=== PATIENT | male | born 1975 | race African-American/Black ===

== ENCOUNTER 2018-11-01 05:35 | Inpatient (IN) ==
[2018-11-01] MEDS ORDERED: DUONEB (A & A) INH ONE ×3 (05:42→06:32)
[2018-11-01] MEDS ORDERED: SOLU-MEDROL IM ONE (05:44)
[2018-11-01 06:33] LABS: BASO# 0.03 X1000 (0.0-0.2); BASO% 0.4 % (0.0-0.8); EOS# 1.69 X1000 (0.0-0.7); EOS% 23.6 % (0.0-10.0); HEMATOCRIT 49.3 % (42.0-52.0); HEMOGLOBIN 16.7 g/dL (14.0-18.0); IMM GRAN# 0.01 X1000 (0.0-0.04); IMM GRAN% 0.1 % (0.0-0.5); LYMPH# 2.92 X1000 (1.2-3.4); LYMPH% 40.8 % (20.5-51.1); MCH 31.7 PG (27-31); MCHC 33.9 g/dL (33-37); MCV 93.5 FL (81-99); MONO# 0.35 X1000 (0.11-0.59); MONO% 4.9 % (1.7-9.3); MPV 9.3 FL (7.4-10.4); NEUT# 2.15 X1000 (1.4-6.5); NEUT% 30.2 % (42.2-75.2); PLT 225 X1000 (130-400); RBC 5.27 XMIL (4.7-6.1); RDW 14.4 % (11.5-14.5); WBC 7.15 X1000 (4.8-10.8)
--- NOTE | 2018-11-01 06:41 | PROVIDER DOCUMENTATION ---
HPI-Respiratory General - General Chief Complaint: Shortness of Breath Stated Complaint: SOB Time Seen by Provider: 11/01/18 05:36 Source: patient Unable to obtain history due to:: urgency Allergies/Adverse Reactions: Patient Allergies Allergy/AdvReac Type Severity Reaction Status Date / Time doxycycline Allergy Mild ITCHING Verified 11/01/18 05:40 propoxyphene napsylate * Allergy Mild ITCHING Verified 11/01/18 05:40 [From Daramnacet-N 100] clindamycin Allergy ITCHING Verified 11/01/18 05:40 Home Medications: Home Medication List Medication Instructions Recorded Confirmed Last Taken Type Montelukast [Singulair] 10 mg PO DAILY #30 tablet 08/25/14 03/16/18 1 Day Ago Rx ~06/26/17 Fluticasone 50 Mcg Nasal [place] 1 squirt REGAN BID 03/28/16 03/16/18 1 Day Ago History [Flonase] ~06/26/17 Albuterol Sulfate [Proair Hfa] 8.5 gm INH ORDERED PRN 04/24/17 03/16/18 1 Day Ago History ~06/26/17 Mometasone/Formoterol [Dulera 200 2 puff INH BID 04/24/17 03/16/18 1 Day Ago History Mcg/5 Mcg Inhaler] ~06/26/17 Albuterol [Albuterol Neb] 2.5 mg INH Q4H PRN PRN #180 neb 08/26/17 03/16/18 Unknown Rx Ipratropium [place] Neb [Atrovent 1 appful INH Q2-4H PRN PRN 10/31/17 03/16/18 Unknown History Neb] Dicyclomine [Bentyl] 20 mg PO BID #20 cap 03/11/18 03/16/18 Unknown Rx Metronidazole 500 mg PO DAILY 03/16/18 03/16/18 Unknown History Omeprazole 40 mg PO DAILY 03/16/18 03/16/18 Unknown History Albuterol Sulfate [Albuterol 8.5 gm IH Q4H PRN PRN #1 hfa.aer.ad 04/20/18 Unknown Rx Sulfate Hfa] Azithromycin [Zithromax Z-Jaret] 250 mg PO DIRECTED #1 pkg 04/20/18 Unknown Rx Benzonatate [Tessalon [place]] 100 mg PO TID PRN PRN #20 cap 04/20/18 Unknown Rx Methylprednisolone [Medrol Dosepak] 4 mg PO DIRECTED #1 pkg 04/20/18 Unknown Rx Prednisone 20 mg PO BID #10 tablet 05/13/18 Unknown Rx Prednisone 20 mg PO BID #30 tablet 06/02/18 Unknown Rx Prednisone 10 mg PO BID PRN PRN #20 tab 09/01/18 Unknown Rx - History of Present Illness-Resp Nature of Presenting Problem: 43 y/o BM c/o wheezing and SOB that started tonight. He relates that this is similar to his previous asthma exacerbations. Quality of Pain: reports: none Severity in ED: reports: moderate Onset/Duration: reports: last night Timing: reports: still present Context: reports: out of meds Cough Quality/Degree: reports: mild Current Respiratory Medication Therapy: Initiated see nurses note, Initiated albuterol/atrovent inhale, Initiated prednisone, Initiated singulair Modifying Factors: improves with: exertion, albuterol inhaler, coughing Associated Symptoms: reports: short of breath, wheezing Similar Symptoms Previously?: Yes Recently seen or treated by another doctor?: No Review of Systems - Adult - REVIEW OF SYSTEMS - ADULT Constitutional: reports: no symptoms reported, see HPI Eyes: reports: no symptoms reported, see HPI Ears, Nose, Mouth & Throat: reports: no symptoms reported, see HPI Cardiovascular: reports: no symptoms reported, see HPI Respiratory: reports: see HPI, wheezing Gastrointestinal: reports: no symptoms reported, see HPI Genitourinary: reports: no symptoms reported, see HPI Musculoskeletal: reports: no symptoms reported, see HPI Integumentary: reports: no symptoms reported, see HPI Neurological: reports: no symptoms reported, see HPI Psychiatric: reports: no symptoms reported, see HPI Endocrine: reports: no symptoms reported, see HPI Hematologic/Lymphatic: reports: no symptoms reported, see HPI Allergic/Immunologic: reports: no symptoms reported, see HPI All Other Systems: Reviewed and Negative Past History - Adult - PAST MEDICAL HISTORY-ADULT Review of Records: reports: Nursing Assessment Review, Medications Reviewed, Social history reviewed & non-contributory. Major Childhood Illnesses: reports: denies history Cardiovascular: reports: denies history Respiratory: reports: asthma, COPD Gastrointestinal: reports: denies history Obstetrical/Gynecological: reports: denies history Genitourinary: reports: denies history Musculoskeletal: reports: denies history Neurological: reports: denies history Psychiatric: reports: denies history Endocrine/Immune: reports: denies history Other Conditions: reports: denies history - PRIOR SURGERIES/PROCEDURES Surgical/Procedure History: reports: reviewed, not pertinent, back/neck (disc repair) - IMMUNIZATION STATUS Childhood Immunizations: See Nurse Assessment Flu Vaccine: See Nurse Assessment - FAMILY HISTORY Family History: reviewed, not pertinent Physical Exam-General - PHYSICAL EXAM-ADULT Initial Vital Signs Reviewed: Yes - CONSTITUTIONAL General Appearance: appears well, alert, no apparent distress - EYES Eyes: PERRL/EOMI - HEAD, EARS, NOSE, MOUTH & THROAT HENMT: normocephalic/atraumatic, moist mucous membranes - NECK Neck: non-tender, full range of motion, supple, normal inspection - RESPIRATORY Respiratory: chest non-tender, no pleuratic chest pain, respiratory distress, decreased breath sounds, wheezing - CARDIOVASCULAR Cardiovascular: normal peripheral pulses, regular rate, rhythm, no edema, no gallop, no JVD, no murmur - GASTROINTESTINAL (ABDOMEN) Abdominal Exam: normal bowel sounds, non tender, soft, no organomegaly, no pulsatile mass - LYMPHATIC Lymphatic: no adenopathy - MUSCULOSKELETAL Back Exam: normal inspection, no CVA tenderness, no vertebral tenderness Extremity: normal range of motion, non-tender, normal gait, normal inspection, no pedal edema, no calf tenderness, normal capillary refill - SKIN Integumentary: normal color, normal turgor - NEUROLOGIC Neurologic: health and wellness director II-XII nml as tested, grossly normal, no motor/sensory deficits - PSYCHIATRIC Psych/Mental Status: normal mood/affect, normal thought content, normal thought process, oriented x 3 Progress - PLAN OF CARE/RESULTS Progress/Plan/Lab Results: Vital Signs - 8 hr 11/01/18 05:38 11/01/18 05:44 Temperature 97.5 F L Pulse Rate 87 90 Respiratory Rate 26 H 22 Blood Pressure 127/85 O2 Sat by Pulse Oximetry 96 93 L Laboratory Results - last 24 hr 11/01/18 06:13 WBC 7.15 RBC 5.27 Hgb 16.7 Hct 49.3 MCV 93.5 MCH 31.7 H MCHC 33.9 RDW Std Deviation 14.4 Plt Count 225 MPV 9.3 Immature Gran % (Auto) 0.1 Neut % (Auto) 30.2 L Lymph % (Auto) 40.8 [place] % (Auto) 4.9 Eos % (Auto) 23.6 H Baso % (Auto) 0.4 Immature Gran # (Auto) 0.01 Neut # (Auto) 2.15 Lymph # (Auto) 2.92 [place] # (Auto) 0.35 Eos # (Auto) 1.69 H Baso # (Auto) 0.03 Orders Category Date Time Status cxr [CHEST-1 VIEW] [RAD] Stat Exams 11/01/18 05:44 Taken CBC WITH ELECTRONIC DIFF [HEME] Stat Lab 11/01/18 06:13 Completed Albuterol 2.5MG/Ipratrop 0.5MG [Duoneb (A & A)] Med 11/01/18 05:42 Discont inued 3 ml INH NOW ONE Albuterol 2.5MG/Ipratrop 0.5MG [Duoneb (A & A)] Med 11/01/18 06:23 D iscontinued 3 ml INH NOW ONE Albuterol 2.5MG/Ipratrop 0.5MG [Duoneb (A & A)] Med 11/01/18 06:32 Discontinued 3 ml INH NOW ONE Methylprednisolone Sod Succ [Solu-Medrol] Med 11/01/18 05:44 Discontinued 125 mg IM NOW ONE Aerosol Treatments Routine Ot 11/01/18 05:42 Completed Aerosol Treatments Routine [facility] 11/01/18 06:23 Completed Aerosol Treatments Stat [facility] 11/01/18 05:42 Completed Aerosol Treatments Stat [facility] 11/01/18 05:42 Completed Aerosol Treatments Stat [facility] 11/01/18 06:23 Completed Asthma/COPD (Adult) Stat [facility] 11/01/18 05:42 Ordered Result Diagrams: 11/01/18 06:13 - REASSESSMENT Reassessment #1 Time Reassessed: 08:00 Status: unchanged Reassessment Comment: Still wheezing and short of breath - CONSULTS/PCP/HOSPITALIST Notification #1 *Consult/PCP/Hospitalist*: Dr. Mix Time Discussed: 08:14 Consult Disposition: Admit - CHANGE OF SHIFT REPORT (ED Provider) 1 Report Given and Care Transferred to:: Dr Pelayo Time of Transfer: 07:00 Items Pending: XRAY Results, Other (symptom improvement) Departure - Departure Date of Disposition Decision: 11/01/18 Time of Disposition Decision: 08:15 DIAGNOSIS: Asthma exacerbation Qualifiers: Asthma severity: moderate Asthma persistence: persistent Qualified Code(s): J45.41 - Moderate persistent asthma with (acute) exacerbation Disposition: ADMITTED INPATIENT 09 Certified Medical Emergency: Emergent Condition: Serious Referrals and Follow-Ups: None,PCP [Primary Care Provider] - - Critical Care Note This patient required my direct & personal management of CC.: No Attestation - Physician/ ROULA Attestation The physician spent face to face time with patient:: Yes Advanced Practice Provider documentation review:: Supervising physician onsite and consulted in the evaluation and care of this patient. The physician did have a face to face encounter with the patient.
--- NOTE | 2018-11-01 07:02 | Diag Imaging Result Doc PS360 ---
EXAM: CHEST-1 VIEW HISTORY: sob TECHNIQUE: Chest single view COMPARISON: 09/01/2018 FINDINGS: The lungs are well expanded. The heart is not enlarged. The vessels are not distended. There are no infiltrates. No effusion identified. There has been surgery to the lower neck. IMPRESSION: Negative exam. Follow-up PA and lateral may be beneficial. Electronically signed by Pro Wyman 11/01/2018 7:00 AM
[2018-11-01 08:20] LABS: CALCIUM 9.5 mg/dL (8.8-10.2); CREATININE 1.4 mg/dL (0.7-1.2); POTASSIUM 4.3 mmol/L (3.5-5.1)
[2018-11-01 08:26] LABS: BE 1.6 mmoll (-3.0-3.0); BLOOD TYPE ARTERIAL; HCO3-(ACT) 25.9 mmoll (20.0-26.0); METHB 0.8 % (0.0-1.5); O2(CT) 19.9 mL/dL (15.0-23.0); PCO2(98.6) 39 mmHg (35-45); PO2(98.6) 57 mmHg (60-100); SAMPLE BLOOD; THB 15.9 g/dL (11.5-17.4); pH(98.6) 7.43 (7.35-7.45)
[2018-11-01 08:33] LABS: ALLEN TEST YES; MODALITY ROOM AIR; O2HB 89.1 % (95.0-99.0)
[2018-11-01] MEDS ORDERED: VENTOLIN HFA INH PRN (10:38)
[2018-11-01] MEDS: DUONEB (A & A) INH SCH ×4 (10:45→22:59)
[2018-11-01] MEDS: SINGULAIR PO SCH ×2 (11:15→11:16)
[2018-11-01] MEDS: FLONASE NAS SCH ×2 (11:16→20:30)
[2018-11-01] MEDS ORDERED: DUONEB (A & A) INH SCH (11:30)
--- NOTE | 2018-11-01 13:57 | HISTORY AND PHYSICAL ---
PRIMARY CARE PHYSICIAN: Dr. Gina Tapia CHIEF COMPLAINT: Shortness of breath and wheezing that started last night and felt similar to previous asthma exacerbations. States that he does use O2 via nasal cannula as needed and that did not help. HISTORY OF PRESENT ILLNESS: This is a 43-year-old male who presents to [facility] ER with complaints of wheezing and shortness of breath that began last night. He has a history of asthma, uses home O2 via nasal cannula at 2 L as needed. He did attempt to use that along with his other inhalers without relief of symptoms. When he arrived, he had an O2 saturation of 96% on room air, respirations were 26. Laboratory data was fairly unremarkable. He did have a creatinine of 1.4, but that is around his baseline, as he has chronic kidney disease stage 3A. His chest x-ray showed a negative exam, but he will be admitted for an acute asthma exacerbation for further evaluation and treatment. PAST MEDICAL HISTORY: COPD on home O2 at 2 L via nasal cannula p.r.n., asthma, obstructive sleep apnea with CPAP use at night, chronic kidney disease stage 3A, and seasonal allergies. PAST SURGICAL HISTORY: Back surgery. FAMILY HISTORY: Father with diabetes, asthma and prostate cancer. SOCIAL HISTORY: Currently lives with family. He is a former smoker of a pack a day for over 20 years, but he quit smoking cigarettes in 2010 when he was diagnosed with COPD. He then switched over to smoking Black and Mild and was smoking 2 a day and quit in 2017. Now he states he smokes 1 Black and Mild about every other day. Denies any alcohol or illicit drug use. ALLERGIES: Doxycycline, propoxyphene and clindamycin. HOME MEDICATIONS: He uses an albuterol nebulizer q.4 to hours p.r.n. and will be held, albuterol inhaler 4 times daily and will be held, ProAir inhaler q.4 to 6 hours p.r.n., Flonase 1 spray nasally daily, Singulair 10 mg p.o. daily. DIAGNOSTIC DATA: White blood cell count of 7.15, hemoglobin 16.7, hematocrit 49.3, platelets 225. ABG with a pH of 7.43, pCO2 of 39, pO2 of 57, bicarb 25.9, oxyhemoglobin 89.1, carboxyhemoglobin 3.40, and this was on room air. Sodium is 140, potassium 4.3, chloride 102, CO2 is 26, BUN of 11, creatinine 1.4, glucose 93. Chest x-ray showed a negative exam. REVIEW OF SYSTEMS: He denied any fever, chills, blurred vision, dizziness or chest pain. He has had a nonproductive cough, shortness of breath, wheezing. Denied any abdominal pain, constipation, diarrhea, burning or hurting with urination. PHYSICAL EXAMINATION: VITAL SIGNS: On arrival, he had a temperature of 97.5, pulse 87, respirations 26, blood pressure 127/85, saturating 96% on room air. GENERAL: This is a 43-year-old male who was lying in the bed, answers all questions appropriately. HEENT: Normocephalic and atraumatic. Normal ENT inspection. Oropharynx and nares are clear. Pupils are equal and reactive to light and accommodation. Extraocular movements were intact. NECK: Normal inspection. Normal range of motion. LUNGS: Wheezing throughout entire posterior lung nesbitt. Equal lung expansion and chest wall movement noted. No O2 in use at this time. HEART: Regular rate and rhythm. No murmurs, rubs or gallops. ABDOMEN: Soft, nontender and nondistended. Bowel sounds are present x4 quadrants. MUSCULOSKELETAL: He has 5/5 strength x4 extremities. NEUROLOGICAL: Cranial nerves II through XII appear grossly intact. ASSESSMENT: 1. Acute asthma exacerbation. 2. History of chronic obstructive pulmonary disease. 3. History of obstructive sleep apnea. 4. Chronic kidney disease. 5. Tobacco abuse. PLAN: He was admitted to the Medical Unit. We will place him on DuoNebs q.4 hours routinely and q.[address] place him on Solu Medrol 80 mg IV q.8 hours and wean as he improves. I placed him on a regular diet. Peak flow b.i.d. Continue home medications as previously identified. We will recheck a CBC and BMP in the a.m. Further orders after being seen by attending. Dictated by CLEMENT Varghese for Drake Mix MD cc: CLEMENT Varghese MD Bernice Swain, MD
[2018-11-01] MEDS ORDERED: SOLU-MEDROL IV SCH (14:00)
[2018-11-01] MEDS ORDERED: LACTULOSE PO ONE (16:30)
[2018-11-01] MEDS ORDERED: LACTULOSE PO PRN (16:30)
[2018-11-01] MEDS ORDERED: PRILOSEC PO ONE (16:30)
[2018-11-01] MEDS ORDERED: TYLENOL PO PRN (16:30)
[2018-11-01] MEDS: ROCEPHIN 1 GM in NS 50 ML IV SCH (17:51)
--- NOTE | 2018-11-01 20:54 | HISTORY AND PHYSICAL ---
ADDENDUM: SUBJECTIVE: The patient gets significant asthma. He is on oxygen at night as needed and at night scheduled with his CPAP. He is stable. He came in with saturations not low, but a lot of bronchospasm and it was not breaking. He had recently been on a course of Augmentin and Medrol per his customer service supervisor. I think he sees someone in the [place] area. In any case, I am listening to him this afternoon and he sounds much better. Wheezing has essentially resolved. I think he is doing probably good enough to go home soon, but I am going to give him 24 hours just to make sure that he does not have any further decompensation. I am going to back down the steroids a little bit. He is empirically on antibiotics and breathing treatments, and we will follow. DISPOSITION: I anticipate discharge tomorrow. He is on Singulair. We will add Prilosec and probably a dose of Rocephin, and follow closely. This was a liim-fc-hour encounter note with CLEMENT Varghese. cc: Drake Mix MD
[2018-11-02] MEDS: SOLU-MEDROL IV SCH ×2 (03:28→17:22)
[2018-11-02] MEDS: DUONEB (A & A) INH SCH ×4 (03:42→16:49)
[2018-11-02] MEDS ORDERED: PRILOSEC PO SCH (07:00)
--- NOTE | 2018-11-02 07:06 | Diag Imaging Result Doc PS360 ---
EXAM: CHEST-2 VIEWS HISTORY: hypoxia TECHNIQUE: Chest two views COMPARISON: 11/01/2018 FINDINGS: The lungs are hyperexpanded. The heart is not enlarged. The vessels are small. There are no infiltrates. No pleural effusions. There has been surgery to the lower neck. IMPRESSION: Emphysema Electronically signed by Pro Wyman 11/02/2018 7:04 AM
[2018-11-02 07:56] VITALS: BP 122/82
[2018-11-02 08:34] LABS: BASO# 0.01 X1000 (0.0-0.2); BASO% 0.1 % (0.0-0.8); EOS# 0.01 X1000 (0.0-0.7); EOS% 0.1 % (0.0-10.0); HEMATOCRIT 46.2 % (42.0-52.0); HEMOGLOBIN 15.8 g/dL (14.0-18.0); IMM GRAN# 0.03 X1000 (0.0-0.04); IMM GRAN% 0.3 % (0.0-0.5); LYMPH# 0.98 X1000 (1.2-3.4); LYMPH% 9.3 % (20.5-51.1); MCH 31.9 PG (27-31); MCHC 34.2 g/dL (33-37); MCV 93.3 FL (81-99); MONO# 0.25 X1000 (0.11-0.59); MONO% 2.4 % (1.7-9.3); MPV 9.4 FL (7.4-10.4); NEUT# 9.28 X1000 (1.4-6.5); NEUT% 87.8 % (42.2-75.2); PLT 205 X1000 (130-400); RBC 4.95 XMIL (4.7-6.1); RDW 14.3 % (11.5-14.5); WBC 10.56 X1000 (4.8-10.8)
[2018-11-02 08:47] LABS: AGAP 14; BUN 15 mg/dL (8-22); CALCIUM 9.6 mg/dL (8.8-10.2); CHLORIDE 103 mmol/L (98-107); COSMO 280; CREATININE 1.2 mg/dL (0.7-1.2); ESTIMATED GFR > 60; GLUCOSE 98 mg/dL (70-104); POTASSIUM 4.4 mmol/L (3.5-5.1); SODIUM 140 mmol/L (136-145); TCO2 24 mmol/L (25-35)
[2018-11-02] MEDS: FLONASE NAS SCH (09:07)
[2018-11-02] MEDS: SINGULAIR PO SCH (09:07)
[2018-11-02 09:09] LABS: BANDS 1 % (0-1); LYMPHS 11 % (21-51); MONO 1 % (1-9); POLYCHROM OCCASIONAL; SEGS 87 % (42-75)
[2018-11-02 09:10] LABS: OVALOCYTES OCCASIONAL; POIKILOCYTOSIS OCCASIONAL; STOMATOCYTES OCCASIONAL; VACUOLES OCCASIONAL
[2018-11-02] MEDS: ROCEPHIN 1 GM in NS 50 ML IV SCH (17:22)
--- NOTE | 2018-11-03 14:02 | DISCHARGE SUMMARY ---
ADMISSION DATE: 11/01/2018 DISCHARGE DATE: 11/02/2018 DISCHARGE DIAGNOSIS: Chronic obstructive pulmonary disease exacerbation, reported possible asthma exacerbation. HOSPITAL COURSE: No pneumonia. In any case, he came in with shortness of breath, cough, wheezing. His workup in the ER was really unremarkable except for just clinical wheezing, shortness of breath. He was placed on Solu-Medrol, I think antibiotics empirically. By the time I saw him, day one, , in the early afternoon, he had much improved. His chest x-ray is clear. No pneumonia but he does report a productive cough. No white count. His lungs were clear and he was felt stable for discharge on the . His peak flows were very good. The one I got with him was around 360. His documented peak flow this morning was 395 and then 540. DISCHARGE MEDICATIONS: Albuterol nebulizers q.4, Atrovent q.4, fluticasone, ProAir rescue, Omnicef 300 p.o. b.i.d. for 7 days, prednisone taper, Prilosec 40 daily, with asthma, Singulair 10 daily, and I have also gone ahead and put him on Advair. I think we will probably just do Flovent or Pulmicort. It just seems like he should qualify for long-standing inhaled steroid, maybe a long-standing inhaled beta agonist but I will start him with Flovent. DISCHARGE INSTRUCTIONS: He can follow up with his PCP and Dr. Barnes. This is a 32 minute discharge. cc: MD Ila Glasgow MD MTDD
== END 2018-11-02 17:15 | disposition home or self-care (01) | DRG 202 ==
LOC: P.ED 05:35 → P.MEDSURG 05:36
PROVIDERS: ATTEND Internal Medicine
CPT/HCPCS: 71010; 71020; 71045; 71046; 80048; 82785; 82805; 85025; 94640; 94761; 96374; 99285; A9270; J0696; J2930

== ENCOUNTER 2019-02-10 20:31 | Observation (INO) ==
[2019-02-10] MEDS ORDERED: DUONEB (A & A) INH ONE (21:16)
[2019-02-10] MEDS ORDERED: SOLU-MEDROL IV ONE (21:17)
[2019-02-10] MEDS ORDERED: BENADRYL IV ONE (21:17)
[2019-02-10] MEDS ORDERED: ALBUTEROL NEB INH ONE (22:00)
[2019-02-10 22:01] LABS: BASO# 0.01 X1000 (0.0-0.2); BASO% 0.2 % (0.0-0.8); EOS# 0.83 X1000 (0.0-0.7); EOS% 12.7 % (0.0-10.0); HEMATOCRIT 42.1 % (42.0-52.0); HEMOGLOBIN 13.7 g/dL (14.0-18.0); IMM GRAN# 0.01 X1000 (0.0-0.04); IMM GRAN% 0.2 % (0.0-0.5); LYMPH# 2.63 X1000 (1.2-3.4); LYMPH% 40.4 % (20.5-51.1); MCH 31.1 PG (27-31); MCHC 32.5 g/dL (33-37); MCV 95.5 FL (81-99); MONO# 0.39 X1000 (0.11-0.59); NEUT# 2.64 X1000 (1.4-6.5); NEUT% 40.5 % (42.2-75.2); PLT 263 X1000 (130-400); RBC 4.41 XMIL (4.7-6.1); WBC 6.51 X1000 (4.8-10.8)
[2019-02-10 22:13] LABS: BE -0.6 mmoll (-3.0-3.0); BLOOD TYPE ARTERIAL; HCO3-(ACT) 24.3 mmoll (20.0-26.0); METHB 1.1 % (0.0-1.5); O2(CT) 19.5 mL/dL (15.0-23.0); O2HB 93.4 % (95.0-99.0); PCO2(98.6) 43 mmHg (35-45); PO2(98.6) 78 mmHg (60-100); SAMPLE BLOOD; SAO2 97.1 % (95.0-100.0); THB 14.8 g/dL (11.5-17.4); pH(98.6) 7.37 (7.35-7.45)
[2019-02-10 22:15] LABS: ALLEN TEST NO; MODALITY CANNULA
[2019-02-10 22:19] LABS: CALCIUM 8.7 mg/dL (8.8-10.2); CREATININE 1.3 mg/dL (0.7-1.2)
--- NOTE | 2019-02-10 22:58 | PROVIDER DOCUMENTATION ---
This chart was entered by Yu Saucedo Scribe, acting as scribe for Memo Martin MD. HPI-Respiratory General - General Chief Complaint: Shortness of Breath Stated Complaint: SOB/RASH Time Seen by Provider: 02/10/19 20:59 Source: patient Allergies/Adverse Reactions: Patient Allergies Allergy/AdvReac Type Severity Reaction Status Date / Time doxycycline Allergy Mild ITCHING Verified 11/01/18 05:40 propoxyphene napsylate * Allergy Mild ITCHING Verified 11/01/18 05:40 [From Darvocet-N 100] clindamycin Allergy ITCHING Verified 11/01/18 05:40 Home Medications: Home Medication List Medication Instructions Recorded Confirmed Last Taken Type Montelukast [Singulair] 10 mg PO DAILY #30 tablet 08/25/14 11/01/18 1 Day Ago Rx ~06/26/17 Fluticasone 50 Mcg Nasal [place] 1 squirt REGAN BID 03/28/16 11/01/18 1 Day Ago History [Flonase] ~06/26/17 Albuterol Sulfate [Proair Hfa] 8.5 gm INH Q4-6H PRN PRN 04/24/17 11/01/18 1 Day Ago History ~06/26/17 Ipratropium Ad[place] Neb [Atrovent 1 appful INH Q2-4H PRN PRN 10/31/17 11/01/18 Unknown History Neb] Albuterol Sulfate [Albuterol 8.5 gm INHALATION [id number] 11/01/18 11/01/18 Unknown History Sulfate Hfa] Albuterol [Albuterol Neb] 2.5 mg INH Q4-6H PRN PRN 11/01/18 11/01/18 Unknown History CefDINIR [Omnicef] 300 mg PO BID #14 cap 11/02/18 Unknown Rx Fluticasone Propionate [Flovent 250 mcg INHALATION BID #1 11/02/18 Unknown Rx Diskus] [facility] Omeprazole [Prilosec] 40 mg PO DAILY #30 capsule. 11/02/18 Unknown Rx Prednisone See Taper PO DAILY #30 tab 11/02/18 Unknown Rx - History of Present Illness-Resp Nature of Presenting Problem: pt is a 43 yr old male presenting with 2 day complaint of cough, increased shortness of breath and rash x 2 days, onset after beginning Augmentin. pt repor ts no relief with neb tx or inhaler. pt on home O2 and CPAP. Severity in ED: reports: severe Onset/Duration: reports: 2 days ago Timing: reports: still present Exposure: reports: unknown cause Cough Quality/Degree: reports: moderate, dry cough Episode Frequency: occasional episodes Current Respiratory Medication Therapy: Initiated see nurses note Modifying Factors: improves with: albuterol inhaler (no improvement), albuterol nebulizer (no improvement), coughing (worsens SOB), oxygen (no improvement), other (CPAP-no improvement) Associated Symptoms: reports: cough, shortness of breath, wheezing Similar Symptoms Previously?: Yes Recently seen or treated by another doctor?: Yes Review of Systems - Adult - REVIEW OF SYSTEMS - ADULT Constitutional: denies: chills, fever Eyes: reports: no symptoms reported Ears, Nose, Mouth & Throat: denies: ear pain, sinus problem, throat pain Cardiovascular: denies: chest pain, palpitations, syncope Respiratory: reports: cough, shortness of breath, wheezing Gastrointestinal: reports: no symptoms reported Genitourinary: reports: no symptoms reported Musculoskeletal: reports: no symptoms reported Integumentary: reports: itching, rash Neurological: denies: dizziness/vertigo, headache/migraines Psychiatric: reports: no symptoms reported Endocrine: reports: no symptoms reported Hematologic/Lymphatic: reports: no symptoms reported Allergic/Immunologic: reports: no symptoms reported All Other Systems: Reviewed and Negative Past History - Adult - PAST MEDICAL HISTORY-ADULT Review of Records: reports: Old Records Reviewed, Nursing Assessment Review, Medications Reviewed, Social history reviewed & non-contributory. Major Childhood Illnesses: reports: denies history Cardiovascular: reports: denies history Respiratory: reports: asthma, COPD Gastrointestinal: reports: denies history Obstetrical/Gynecological: reports: denies history Genitourinary: reports: denies history Musculoskeletal: reports: denies history Neurological: reports: denies history Psychiatric: reports: denies history Endocrine/Immune: reports: denies history Other Conditions: reports: denies history - PRIOR SURGERIES/PROCEDURES Surgical/Procedure History: reports: reviewed, not pertinent, back/neck (disc repair) - IMMUNIZATION STATUS Childhood Immunizations: See Nurse Assessment Flu Vaccine: See Nurse Assessment - FAMILY HISTORY Family History: reviewed, not pertinent - SOCIAL HISTORY Smoking: cigar Provider spent 3-5 mins advising pt. on dangers of tobacco.: Discussed manners to quit use, and f/u contacts for add'l counseling. Substance Use: denies Living Situation: alone Physical Exam-General - PHYSICAL EXAM-ADULT Initial Vital Signs Reviewed: Yes - CONSTITUTIONAL General Appearance: alert, mild distress, anxious - EYES Eyes: PERRL/EOMI - HEAD, EARS, NOSE, MOUTH & THROAT HENMT: normocephalic/atraumatic, moist mucous membranes, normal ENT inspection - NECK Neck: non-tender, full range of motion, supple, normal inspection - RESPIRATORY Respiratory: decreased breath sounds, wheezing, increased rate - CARDIOVASCULAR Cardiovascular: normal peripheral pulses, regular rate, rhythm, no edema - GASTROINTESTINAL (ABDOMEN) Abdominal Exam: normal bowel sounds, non tender, soft - LYMPHATIC Lymphatic: no adenopathy - MUSCULOSKELETAL Back Exam: normal inspection, no CVA tenderness, no vertebral tenderness Extremity: normal range of motion, non-tender, normal gait, normal inspection - SKIN Integumentary: normal color, normal turgor, warm/dry - NEUROLOGIC Neurologic: grossly normal - PSYCHIATRIC Psych/Mental Status: anxious Progress - PLAN OF CARE/RESULTS Progress/Plan/Lab Results: Vital Signs - 8 hr 02/10/19 20:34 02/10/19 21:54 02/10/19 22:03 Temperature 98.3 F Pulse Rate 92 H 89 98 H Respiratory Rate 26 H 18 18 Blood Pressure 124/77 O2 Sat by Pulse Oximetry 93 L 94 L Laboratory Results - last 24 hr 02/10/19 02/10/19 02/10/19 21:38 21:38 21:38 WBC 6.51 RBC 4.41 L Hgb 13.7 L Hct 42.1 MCV 95.5 MCH 31.1 H MCHC 32.5 L RDW Std Deviation 14.0 Plt Count 263 MPV 10.0 Immature Gran % (Auto) 0.2 Neut % (Auto) 40.5 L Lymph % (Auto) 40.4 [place] % (Auto) 6.0 Eos % (Auto) 12.7 H Baso % (Auto) 0.2 Immature Gran # (Auto) 0.01 Neut # (Auto) 2.64 Lymph # (Auto) 2.63 [place] # (Auto) 0.39 Eos # (Auto) 0.83 H Baso # (Auto) 0.01 Specimen Type Sample Site pH pCO2 pO2 HCO3 Base Excess Oxyhemoglobin ABG O2 Sat (Calculated) ABG O2 Saturation ABG Carboxyhemoglobin ABG Methemoglobin Jm Test A-a O2 Difference Total Hemoglobin Lactate Liter Flow Blood Gas Modality FiO2 % Sodium 146 H Potassium 4.0 Chloride 111 H Carbon Dioxide 23 L Anion Gap 13 BUN 9 Creatinine 1.3 H Estimated GFR/1.73 m2 60 BUN/Creatinine Ratio 7 Glucose 96 Calculated Osmolality 289 Calcium 8.7 L Troponin T < 0.010 02/10/19 21:50 WBC RBC Hgb Hct MCV MCH MCHC RDW Std Deviation Plt Count MPV Immature Gran % (Auto) Neut % (Auto) Lymph % (Auto) [place] % (Auto) Eos % (Auto) Baso % (Auto) Immature Gran # (Auto) Neut # (Auto) Lymph # (Auto) [place] # (Auto) Eos # (Auto) Baso # (Auto) Specimen Type ARTERIAL Sample Site R BRACHIAL pH 7.37 pCO2 43 pO2 78 HCO3 24.3 Base Excess -0.6 Oxyhemoglobin 93.4 L ABG O2 Sat (Calculated) 19.5 ABG O2 Saturation 97.1 ABG Carboxyhemoglobin 2.70 H ABG Methemoglobin 1.1 Jm Test NO A-a O2 Difference 54.0 Total Hemoglobin 14.8 Lactate 1.60 Liter Flow 1.5 Blood Gas Modality CANNULA FiO2 % 26.0 Sodium Potassium Chloride Carbon Dioxide Anion Gap BUN Creatinine Estimated GFR/1.73 m2 BUN/Creatinine Ratio Glucose Calculated Osmolality Calcium Troponin T Orders Category Date Time Status Cardiac Monitoring DIRECTED Care 02/10/19 21:19 Active CHEST-PORTABLE [RAD] Stat Exams 02/10/19 21:17 Taken ABG [RESP] Routine Lab 02/10/19 21:50 Completed BMP [BASIC METABOLIC PANEL] [CHEM] Stat Lab 02/10/19 21:38 Completed BNP [PRO B-NATRIURETIC PEPTIDE] Stat Lab 02/10/19 21:38 Received CBC WITH ELECTRONIC DIFF [HEME] Stat Lab 02/10/19 21:38 Completed TROPONIN T Stat Lab 02/10/19 21:38 Completed Albuterol 2.5MG/Ipratrop 0.5MG [Duoneb (A & A)] Med 02/10/19 21:16 Discontinued 3 ml INH NOW ONE Albuterol [Albuterol Neb] Med 02/10/19 22:00 Discontinued 2.5 mg INH NOW ONE Diphenhydramine [Benadryl] Med 02/10/19 21:17 Discontinued 25 mg IV NOW ONE Methylprednisolone Sod Succ [Solu-Medrol] Med 02/10/19 21:17 Discontinued 125 mg IV NOW ONE Aerosol Treatments Routine Oth 02/10/19 21:16 Completed Aerosol Treatments Stat Oth 02/10/19 21:16 Completed Oxygen Device Stat Oth 02/10/19 21:18 Active Pulse Oximetry Stat Oth 02/10/19 21:20 Active neb [Aerosol Treatments] Stat Oth 02/10/19 22:00 Completed EKG [EKG] Stat Ther 02/10/19 21:18 Ordered Result Diagrams: 02/10/19 21:38 02/10/19 21:38 - CONSULTS/PCP/HOSPITALIST Notification #1 *Consult/PCP/Hospitalist*: Dr. Pederson Time Discussed: 22:35 Consult Disposition: Admit Departure - Departure Date of Disposition Decision: 02/10/19 Time of Disposition Decision: 22:59 DIAGNOSIS: Chronic obstructive pulmonary disease with acute exacerbation, Allergic dermatitis Disposition: ADMITTED INPATIENT 09 Certified Medical Emergency: Emergent Condition: Stable Referrals and Follow-Ups: Gina Tapia MD [Primary Care Provider] - - Critical Care Note This patient required my direct & personal management of CC.: No Attestation - Physician/ ROULA Attestation Patient care was provided by Advanced Practice Provider:: No The physician spent face to face time with patient:: Yes Advanced Practice Provider documentation review:: Supervising physician onsite and consulted in the evaluation and care of this patient. The physician did have a face to face encounter with the patient. This chart was documented by the indicated scribe, (Yu Saucedo Scribe) and ac curately reflects the services I performed and decisions made by me, Memo Martin MD, as attested by the provider's signature.
[2019-02-10] MEDS ORDERED: ROCEPHIN 1 GM in NS 50 ML IV ONE (23:00)
[2019-02-10] MEDS: DUONEB (A & A) INH SCH (23:35)
[2019-02-11] MEDS ORDERED: BENADRYL IV PRN (01:00)
[2019-02-11] MEDS: DUONEB (A & A) INH SCH ×3 (03:16→10:49)
[2019-02-11] MEDS ORDERED: SOLU-MEDROL IV SCH ×2 (04:00→07:20)
--- NOTE | 2019-02-11 07:02 | Diag Imaging Result Doc PS360 ---
EXAM: CHEST-PORTABLE - 02/10/2019 HISTORY: sob TECHNIQUE: Portable chest one view COMPARISON: 11/02/2018 FINDINGS: Heart size is normal. The lungs appear clear. There is no pleural effusion or pneumothorax identified. IMPRESSION: No acute changes. Electronically signed by Tigre Paredes 02/11/2019 7:00 AM
[2019-02-11 09:14] VITALS: BP 119/76
--- NOTE | 2019-02-11 14:14 | HISTORY AND PHYSICAL ---
delete Dictated by CLEMENT Flores for Hieu Frank MD cc: Hieu Frank MD [facility]
--- NOTE | 2019-02-11 14:52 | HISTORY AND PHYSICAL ---
PRIMARY CARE PROVIDER: Dr. Gina Tapia. CHIEF COMPLAINT: Shortness of breath and rash. HISTORY OF PRESENT ILLNESS: Mr. Santos is a 43-year-old male, who presented to the [facility] with complaints of shortness of breath and a rash after starting Augmentin. He has a history of asthma and uses home O2 p.r.n. 2 L, as well as sleep apnea with CPAP use at night, chronic kidney disease, seasonal allergies. Workup in the ED revealed a mild COPD exacerbation. He was initiated on bronchodilators, IV steroids and IV Rocephin, and given a dose of IV Benadryl. Overnight, the patient has improved and is requesting to be discharged home. PAST MEDICAL HISTORY: 1. COPD on home O2 at 2 L p.r.n. 2. Asthma. 3. Obstructive sleep apnea with CPAP use at night. 4. Chronic kidney disease stage III-A. 5. Seasonal allergies. PAST SURGICAL HISTORY: Back surgery. FAMILY HISTORY: Father with diabetes, asthma and prostate cancer. SOCIAL HISTORY: He lives with family. He is a former smoker, a pack per day for over 20 years. Quit smoking in 2010 when he was diagnosed with COPD. He then switched over to smoking Black and Mild, was smoking 2 a day and quit in 2017. Most recently, he smokes 1 Black and Mild about every other day. No alcohol or illicit drug use. ALLERGIES: Doxycycline, propoxyphene and clindamycin. HOME MEDICATIONS: 1. Albuterol nebulizer 2.5 mg inhaled q. 4 hours p.r.n. 2. Breo Ellipta 1 puff inhaled daily. 3. Flonase 1 squirt nasal b.i.d. 4. ProAir inhaler 8.5 g inhaled q. 4 hours. 5. Medrol Dosepak 4 mg p.o. as directed x1 package. 6. Singulair 10 mg p.o. daily. 7. Z-Jaret 250 mg p.o. as directed at discharge. PHYSICAL EXAMINATION: VITAL SIGNS: Temperature is 97.2 degrees, heart rate 79, respirations 18, blood pressure 119/76, O2 is 100% on room air. GENERAL: Mr. Santos is a 43-year-old male, who is sitting up in the bed requesting to go home in no acute distress. HEENT: Atraumatic, normocephalic. PERRL. NECK: Supple. Trachea midline. CARDIOVASCULAR: S1, S2 appreciated. No murmurs, gallops, or rubs noted. RESPIRATORY: Lung sounds clear bilaterally. No wheezes or rhonchi. GI: Flat, soft, nontender, nondistended. Positive bowel sounds 4 quads. LOWER EXTREMITIES: Negative for edema. NEUROLOGIC: No focal deficits noted. DIAGNOSTIC DATA: Chest x-ray: No acute change. LABORATORY DATA: White count 6, hemoglobin and hematocrit 13 and 42, platelet count is 263. Sodium 146, potassium 4, BUN 9, creatinine 1.3, blood glucose was 96. ASSESSMENT AND PLAN: 1. Mild chronic obstructive pulmonary disease exacerbation in a patient with known Chronic obstructive pulmonary disease on home oxygen as needed. 2. Allergic dermatitis secondary to Augmentin use. The patient was given intravenous Benadryl and can take oral Benadryl [id number] at home. 3. Chronic kidney disease, stable. 4. Obstructive sleep apnea on CPAP. 5. Seasonal allergies. 6. Further recommendation to follow physician evaluation, laboratory and diagnostic data. The patient has since been discharged. Dictated by CLEMENT Flores for Hieu Frank MD cc: Hieu Frank MD
--- NOTE | 2019-02-11 23:43 | HISTORY AND PHYSICAL ---
ADDENDUM: Patient presented to the hospital with increased work of breathing, shortness of breath. He is in moderate distress with moderate coughing, wheezing, and requiring oxygen when he presented to the hospital. We are going to admit him on oxygen, breathing treatments, and will follow. cc: Hieu Frnak MD
--- NOTE | 2019-02-12 02:00 | DISCHARGE SUMMARY ---
ADMISSION DATE: 02/10/2019 DISCHARGE DATE: 02/11/2019 DISCHARGE DIAGNOSES: 1. COPD with exacerbation, improved. 2. Allergic dermatitis of undetermined origin. 3. Hypernatremia, resolved. 4. Chronic allergies. 5. Chronic tobacco abuse. Discussed with the patient the perils of smoking as well as ways to stop. CONSULTATIONS: None. PROCEDURES: None. BRIEF HOSPITAL COURSE: The patient was admitted to the hospital and placed in the usual fashion on Solu-Medrol, breathing treatments, oxygen. He thankfully continued to improve on discharge. He is awake, alert, he is in no distress. He notes that he is feeling tremendously better and is asking to go home. DISPOSITION: The patient will be discharged home with breathing treatments, Medrol Dosepak. I discussed with him that he has got to stop smoking. He will follow up outpatient with a treatment facility of choice. TIME SPENT: Greater than 30 minutes was spent in total care. cc: Hieu Frank MD
== END 2019-02-11 11:07 | disposition home or self-care (01) ==
LOC: P.MEDSURG 20:31 → P.ED 20:31 → SUATTDRO 23:16
PROVIDERS: ATTEND Family Medicine